=== PATIENT | male | born 1960 | race Caucasian/White ===

== ENCOUNTER 2022-12-28 09:00 | Outpatient (NON) | payer OTHER, SELFPAY | END 2022-12-28 09:01 | disposition home or self-care (01) | LOC: ANHLAB 12-29 07:27 | PROVIDERS: PCP Internal Medicine; Visit Provider Internal Medicine Gastroenterology | DX: Z12.11 Encounter for screening for malignant neoplasm of colon (principal); D12.4 Benign neoplasm of descending colon; D12.5 Benign neoplasm of sigmoid colon | CPT/HCPCS: 88305 ==

== ENCOUNTER 2022-12-28 09:06 | Day surgery (SDC) | payer OTHER, SELFPAY ==
[2022-12-03 14:36] VITALS: BMI 26.5
[2022-12-10 12:00] VITALS: BMI 24.3
--- NOTE | 2022-12-23 21:13 | PM.HPGS ---
History of Present Illness History of Present Illness Consent: Risks, benefits, and alternatives have been discussed and questions answered. Patient agrees to proceed with procedure. Chief complaint: Positive Cologuard Narrative: Geronimo Parr is a 62 year old male with positive cologuard . This is his 1st colonoscopy Review of Systems Review of Systems: All systems reviewed & are unremarkable except as noted in HPI and below PMFSH Family History Family History Mother Diabetes mellitus Social History Social History Smoking status: Never smoker Alcohol intake: never Substance use: never Substance use type: does not use Living arrangements: with family Spiritual care concerns: No Meds Home Medications and Allergies Home Medications Medication Instructions Recorded Confirmed Type No Home Medications 12/10/22 12/28/22 History Allergies Allergy/AdvReac Type Severity Reaction Status Date / Time No Known Allergies Allergy Verified 12/28/22 09:57 Exam Const: General: alert Orientation/consciousness: patient oriented x3 Resp: Auscultation: clear to auscultation bilaterally Cardio: Rhythm: regular rhythm GI: GI Palp: Yes Soft to palpation and No Tenderness to palpation present (GI) Neuro: General: patient oriented x3 Assessment and Plan Assessment and plan (1) Colon cancer screening: Code(s): Z12.11 - Encounter for screening for malignant neoplasm of colon Status: Acute Assessment and Plan: Colonoscopy with possible biopsy or polypectomy or cautery or injection of substances.
[2022-12-28 09:40] VITALS: BP 130/92; PULSE 96; RESP 20; TEMP 36.6; O2SAT 100
--- NOTE | 2022-12-28 09:50 | P.PNAN_ITS ---
Anes - Initial Pre Proc Eval Procedure: Operation Date: 12/28/22 11:00 Proposed Procedures p Diagnostic Colonoscopy - George Ferguson MD Date/Time: 12/28/22 09:50 Surgeon: George Ferguson MD Pre Op Diagnosis: Positive Cologuard Patient Data Age: 62 Gender: M Height: 1.8 m Weight: 79 kg Allergies Allergy/AdvReac Type Severity Reaction Status Date / Time No Known Allergies Allergy Verified 12/10/22 11:54 Home Medications Medication Instructions Recorded Confirmed Type No Home Medications 12/10/22 12/10/22 History Patient hx anesthesia problems: none Family hx anesthesia problems: none Results Review: All pre-operative results and documents have been reviewed as part of the pre- operative evaluation. PMFSH Family History Family History Mother Diabetes mellitus Social History Social History Smoking status: Never smoker Alcohol intake: never Substance use: never Substance use type: does not use Living arrangements: with family Spiritual care concerns: No Anes - Eval Final PreProcedure Day of Procedure 12/28/22 09:50 Patient weight: normal Heart: regular rate and rhythm Lungs: clear to auscultation Airway: Mallampati scale class II Neurological: alert and oriented Last oral intake: >/= 8 hours ASA classification: I Emergent: no Anesthetic plan: proceed Anesthesia type and monitoring: general GIVS and standard monitoring Results Review: All pre-operative results and documents have been reviewed as part of the pre- operative evaluation. Informed Consent: The patient's anesthetic plan and its attendant risks and benefits were discussed with the patient/family/POA. Questions were solicited and answers provided to the satisfaction of the patient/family/POA.
[2022-12-28] MEDS: LACTATED RINGERS 1,000 ML 150 ML IV CONT (10:02)
[2022-12-28 11:07] VITALS: BP 111/69; PULSE 82; RESP 16; O2SAT 99
[2022-12-28 11:17] VITALS: BP 99/72; PULSE 70; RESP 16; O2SAT 99
--- NOTE | 2022-12-28 11:22 | WPDANESPN ---
Anes - Prog Note Post-Op Date/Time: 12/28/22 11:22 Cardiovascular status: normal Respiratory status: normal Airway patency: baseline Mental status: baseline Post-Op hydration status: normal Vital Signs: Last Vital Signs Temp 36.6 C 12/28/22 09:40 Pulse 96 12/28/22 09:40 Resp 20 12/28/22 09:40 BP 130/92 H 12/28/22 09:40 Pulse Ox 100 12/28/22 09:40 O2 Del Method Room Air 12/28/22 09:40 Pain Score (VAS): 0 I/O: Intake & Output 12/27/22 12/28/22 12/28/22 23:59 07:59 15:59 Intake Total 400 Balance 400 Patient Feedback: Patient satisfied with anesthetic care.
[2022-12-28 11:27] VITALS: BP 112/75; PULSE 65; RESP 16; O2SAT 100
--- NOTE | 2022-12-28 11:41 | SUR.PHASEII ---
1130; PT AWAKE AND ALERT. TALKATIVE. DENIES PAIN. ASKING WHEN HE CAN GO HOME. DOES NOT WANT ANYTHING TO DRINK AT THIS TIME.
== END 2022-12-28 11:41 | disposition home or self-care (01) ==
PROVIDERS: PCP Internal Medicine; Visit Provider Internal Medicine Gastroenterology
PROC: 0DJD8ZZ Inspection of Lower Intestinal Tract, Via Natural or Artificial Opening Endoscopic (ICD-10-PCS; CPT 45378; principal; 2022-12-28 11:00)
DX: Z12.11 Encounter for screening for malignant neoplasm of colon (principal)
CPT/HCPCS: 45385; 45381; 45380